=== PATIENT | male | born 2000 | race Caucasian/White ===

== ENCOUNTER 2019-11-17 20:57 | Emergency (ER) | payer BC, OTHER ==
[2019-11-17] MEDS ORDERED: Tetan/Diph/Pertus SYR(Tdap)* 0.5 ML SYR(BOOSTRIX) use SYR contains LATEX IM ONE (21:21)
--- NOTE | 2019-11-17 21:22 | ED ---
Laceration/Wound HPI - HPI Summary HPI Summary: Patient complains of laceration to volar surface of distal right thumb while trying to wash denies. Tetanus status unknown. Denies any other pain, injury or symptoms. - History of Current Complaint Stated Complaint: R THUMB INJURY PER PT Time Seen by Provider: 11/17/19 21:21 Hx Obtained From: Patient Mechanism of Injury: Sharp/Blunt Trauma Onset Severity: Mild Current Severity: Mild Pain Intensity: 2 Pain Scale Used: 0-10 Numeric Associated Signs & Symptoms: Negative - Allergy/Home Medications Allergies/Adverse Reactions: Allergies Allergy/AdvReac Type Severity Reaction Status Date / Time No Known Allergies Allergy Verified 11/02/12 19:03 Home Medications: Home Medications Dextroamphetamine ER (NF) 20 mg PO DAILY 11/17/19 [History Confirmed 11/17/19] PMH/Surg Hx/FS Hx/Imm Hx Endocrine/Hematology History: Denies: Hx Anticoagulant Therapy Cardiovascular History: Denies: Hx Pacemaker/ICD History: Denies: Hx Dialysis Sensory History: Denies: Hx Eye Prosthesis Opthamlomology History: Denies: Hx Legally Blind EENT History: Denies: Hx Deafness Neurological History: Denies: Hx Dementia - Immunization History Date of Tetanus Vaccine: 2008 Infectious Disease History: No Infectious Disease History: Denies: Traveled Outside the [place] in Last 30 Days - Family History Known Family History: Positive: Non-Contributory - Social History Alcohol Use: Occasionally Substance Use Type: Reports: None Hx Tobacco Use: No Review of Systems Constitutional: Negative Eyes: Negative ENT: Negative Cardiovascular: Negative Respiratory: Negative Gastrointestinal: Negative Genitourinary: Negative Musculoskeletal: Negative Skin: Other Neurological: Negative Psychological: Normal All Other Systems Reviewed And Are Negative: Yes Physical Exam - Summary Physical Exam Summary: 3 cm x 0.5 cm laceration on distal surface of right thumb. Flexion and extension intact of each individual joint. PMS intact distally. Triage Information Reviewed: Yes Vital Signs On Initial Exam: Initial Vitals Temp Pulse Resp BP Pulse Ox 97.7 F 69 16 132/88 96 11/17/19 20:58 11/17/19 20:58 11/17/19 20:58 11/17/19 20:58 11/17/19 20:58 Vital Signs Reviewed: Yes Appearance: Positive: Well-Appearing Skin: Positive: Warm Head/Face: Positive: Normal Head/Face Inspection Eyes: Positive: Normal Neck: Positive: Supple Respiratory/Lung Sounds: Positive: Clear to Auscultation Cardiovascular: Positive: Normal Abdomen Description: Positive: Nontender Musculoskeletal: Positive: Normal Neurological: Positive: Normal Psychiatric: Positive: Normal AVPU Assessment: Alert - Cuthbert Coma Scale Best Eye Response: 4 - Spontaneous Best Motor Response: 6 - Obeys Commands Best Verbal Response: 5 - Oriented Coma Scale Total: 15 Procedures - Sedation Patient Received Moderate/Deep Sedation with Procedure: No - Laceration/Wound Repair 1 Location: upper extremity Description: Linear Anesthesia: Digital, 1.0% Length, Depth and Shape: 3cm x .5cm Betadine Prep?: No Irrigated w/ Saline (ccs): 200 Laceration/Wound Explored: clean Debridement: minimal Number of Sutures: 6 - 4.0 prolene Layer Closure?: No Sterile Dressing Applied?: No Diagnostics - Vital Signs Vital Signs Temp Pulse Resp BP Pulse Ox 11/17/19 20:58 97.7 F 69 16 132/88 96 - Laboratory Lab Statement: Any lab studies that have been ordered have been reviewed, and results considered in the medical decision making process. Laceration Repair Course/Dx - Course Course Of Treatment: Patient complains of laceration to volar surface of distal right thumb while trying to wash denies. Tetanus status unknown. Denies any other pain, injury or symptoms. Vital signs within normal limits. Wound clean and sutured. Tetanus booster administered. - Clinical Impression Provider Diagnoses: Laceration Discharge ED - Sign-Out/Discharge Documenting (check all that apply): Patient Departure - Discharge Plan Condition: Stable Disposition: HOME Patient Education Materials: Care For Your Stitches (ED), Finger Laceration (ED ) Referrals: No Primary Care Phys,NOPCP [Primary Care Provider] - Additional Instructions: Starting tomorrow morning you may wash wound with warm running water and soap. Keep clean and dry and protected when not washing. Sutures out in 10 days. Follow-up with primary care. Return to the ED for any new or worsening symptoms. - Billing Disposition and Condition Condition: STABLE Disposition: Home
[2019-11-17 22:03] VITALS: BP 96/72
== END 2019-11-17 22:01 | disposition home or self-care (01) ==
LOC: ED 20:57
DX: S61.011A Laceration without foreign body of right thumb without damage to nail, initial encounter (principal); W26.9XXA Contact with unspecified sharp object(s), initial encounter; Y93.G1 Activity, food preparation and clean up; Y92.9 Unspecified place or not applicable; Z23 Encounter for immunization
CPT/HCPCS: 12002; 90471; 90715; 99282